=== PATIENT | female | born 1940 | race Caucasian/White ===

== ENCOUNTER → 2024-05-24 11:53 | Outpatient (REF) | payer OTHER, SELFPAY | LOC: RAD 11:53 | PROVIDERS: ATTENDING PHYSICIAN Physician Assistant; FAMILY PHYSICIAN Family Medicine | DX: M54.50 Low back pain, unspecified (principal); W19.XXXA Unspecified fall, initial encounter | CPT/HCPCS: 72110; 72170 ==

== ENCOUNTER 2024-06-04 10:05 | Emergency (ER) | payer OTHER, SELFPAY ==
[2024-06-04 10:09] VITALS: BP 181/93
--- NOTE | 2024-06-04 10:55 | ED.GENMED ---
History of Present Illness
General
Chief Complaint: Abdominal Symptoms
Time Seen by Provider: 06/04/24 10:32
History of Present Illness
History of Present Illness:
83-year-old female with history of hypertension presents to the emergency department for evaluation of persistent nausea for the past few days. Has been unable to eat for the past 2 days due to symptoms. Denies any vomiting or abdominal pain. No
fever, chills, sweats, dizziness, vision changes, chest pain, or shortness of breath. Does note that she got a flu shot 1 week ago.
Review of Systems
Review of Systems
Allergies reviewed?: Yes
All Other Systems: ROS reviewed and negative except as documented in HPI and ROS
Phy Exam
Physical Exam
Physical Exam:
GEN: Well appearing, NAD, WDWN
Eyes: PERRLA, EOMs intact, no scleral icterus
HENT: NCAT, oral mucosa moist
Lungs: CTAB, no wheezes, rales, rhonchi, normal chest wall excursion
Cardiac: RRR, no M/R/G, no peripheral edema. Radial pulses 2+ bilat
Abdomen: S, NT, ND, NABS, no masses or hepatosplenomegaly
Neuro: AO x 3, cranial nerves II through XII grossly intact, no focal deficits to BUE/BLE, normal sensation throughout
MSK: No gross deformity or ecchymosis. No edema. No digital clubbing
Skin: No rashes, petechiae. Normal color, no pallor or jaundice.
Psych: Calm, cooperative, proper hygiene
Course
Orders/Labs/Results
Orders:
Orders
06/04/24 10:54
Electrocardiogram (*1) Urgent
Reason for Study: Other
Other Reason for Exam: nausea
EKG- Treatment ONCE
0.9% Sodium Chloride 1000 ml [Nss] 1,000 ml IV BOLUS
06/04/24 11:03
Complete Blood Count/With Diff Urgent
Comprehensive Metabolic Panel Urgent
06/04/24 12:20
Ondansetron Injectable [Zofran] 4 mg IV NOW STA
Abnormal Lab Results
06/04/24
11:03
Absolute Neuts (auto) 7.1 H 10^3/uL
(1.4-6.5)
Absolute Monos (auto) 0.7 H 10^3/uL
(0.1-0.6)
Neutrophils % 75.6 H %
(42.2-75.2)
Lymphocytes % 16.4 L %
(20.5-51.1)
Glucose 108 H mg/dl
(70-99)
06/04/24 11:03
06/04/24 11:03
Vital Signs
Initial and Last Documented VS:
Initial Vital Signs
Temp Pulse Resp BP Pulse Ox
98.6 F 93 16 181/93 97
06/04/24 10:09 06/04/24 10:09 06/04/24 10:09 06/04/24 10:09 06/04/24 10:09
Last Documented Vital Signs
Temp Pulse Resp BP Pulse Ox
98.6 F 85 15 181/93 94
06/04/24 10:09 06/04/24 12:45 06/04/24 12:45 06/04/24 10:09 06/04/24 12:30
MDM/Problems Addressed
MDM/Problems Addressed:
His labs and EKG were normal. She has no abdominal pain or tenderness warranting imaging at this time. She was given 1 dose of Zofran with improvement in symptoms and was able to tolerate p.o. fluids without difficulty. May be a side effect of
her recent flu shot
*Critical Care Note
Total Time (30-74mins, 75-104mins- exclusive of procedures): Not Applicable
ED Attending Note
-
Portions of this chart may have been created with voice recognition software.� Occasional wrong word or��sound alike� substitutions may have occurred due to the inherent limitations of voice recognition software.
Discharge Plan
Departure
Patient Disposition: Home (Routine Discharge)
Date of Disposition: 06/04/24
Time of Disposition: 12:57
Patient with high blood pressure during this ER visit?: No
Discharge Problem:
Nausea
Prescriptions:
New
ondansetron 4 mg tablet,disintegrating
4 mg PO TIDPRN PRN (Reason: nausea/vomiting) Qty: 6 0RF
Referrals:
Janes Kay, DO [Family Provider] -
Activity Restrictions/Additional Instructions:
The cause of your nausea is not clear at this time, take the prescribed medication as needed for continued symptoms however the symptoms last more than 2 days follow-up with your primary care physician to discuss any further workup that may be needed
Interventions
Interventions:
*Risk Screen - Suicide Last Done: 06/04/24 10:53
*General Assessment Last Done: 06/04/24 10:53
*Neglect/Abuse Screening Last Done: 06/04/24 10:53
ED- Fall Risk Assessment Last Done: 06/04/24 10:53
*ED COVID-19 Vaccine History Last Done: 06/04/24 10:53
*Nursing Disposition Last Done: 06/04/24 13:12
ZW-Oxrhrc-Irioflnapq Assessment Last Done: 06/04/24 10:53
Discharge Date and Time
Discharge Date/Time: 06/04/24 13:12
Print Language: KINYARWANDA
[2024-06-04] MEDS: NSS 1000 IV (11:05)
[2024-06-04 11:15] LABS: % Basophils 0.2 % (0-2); % Eosinophils 0.4 % (0-6); % Immature Granulocytes 0.2 % (0-0.5); % Lymphocytes 16.4 % (20.5-51.1); % Monocytes 7.2 % (1.7-9.3); % Neutrophils 75.6 % (42.2-75.2); Absolute Lymphocytes 1.6 10^3/uL (1.2-3.4); Absolute Monocytes 0.7 10^3/uL (0.1-0.6); Absolute Neutrophils 7.1 10^3/uL (1.4-6.5); Hematocrit 41.7 % (37.0-47.0); Hemoglobin 14.4 g/dL (12.0-16.0); Mean Corp Hgb Conc. 34.5 g/dL (33.0-37.0); Mean Corpuscular Hgb 30.8 pg (27.0-31.0); Mean Corpuscular Volume 89.3 fL (81.0-99.0); Mean Platelet Volume 10.3 fL (7.4-10.4); Nucleated Red Blood Cells % 0 %; Platelet Count 318 10^3/uL (130-400); Red Blood Cell Count 4.67 10^6/uL (4.20-5.40); Red Cell Dist. Width 13.9 % (11.5-14.5); White Blood Cell Count 9.4 10^3/uL (4.8-10.8)
[2024-06-04 11:35] LABS: ALT (SGPT) 20 U/L (0-35); AST (SGOT) 28 U/L (14-36); Albumin 4.4 g/dl (3.5-5.0); Alkaline Phosphatase 124 U/L (38-126); Blood Urea Nitrogen 12 mg/dl (7-17); Calcium 10.2 mg/dl (8.4-10.2); Carbon Dioxide 26 mmol/L (22-30); Chloride 100 mmol/L (98-107); Glucose 108 mg/dl (70-99); Potassium 4.7 mmol/L (3.5-5.1); Sodium 141 mmol/L (135-145); Total Bilirubin 0.9 mg/dl (0.2-1.3); Total Protein 6.8 g/dl (6.3-8.2); eGFR > 60.00
[2024-06-04] MEDS: ZOFRAN 4 MG IV (12:24)
== END 2024-06-04 13:12 | disposition home or self-care (01) ==
LOC: EMR 10:05
PROVIDERS: Physician Assistant; EMERGENCY PHYSICIAN Emergency Medicine; FAMILY PHYSICIAN Family Medicine
DX: R11.0 Nausea (principal); I10 Essential (primary) hypertension
CPT/HCPCS: 99283; 96374; 96361; 80053; 85025; 93005

== ENCOUNTER 2024-06-06 13:09 | Emergency (ER) | payer OTHER, SELFPAY ==
[2024-06-06 13:12] VITALS: BP 192/86
[2024-06-06 13:21] VITALS: BP 166/70
[2024-06-06] MEDS: NSS 1000 IV (13:36)
[2024-06-06] MEDS: PEPCID 20 MG IV (13:39)
[2024-06-06] MEDS: ZOFRAN 4 MG IV (13:39)
[2024-06-06 13:52] LABS: % Basophils 0.5 % (0-2); % Eosinophils 0.6 % (0-6); % Immature Granulocytes 0.3 % (0-0.5); % Lymphocytes 23.3 % (20.5-51.1); % Monocytes 7.5 % (1.7-9.3); % Neutrophils 67.8 % (42.2-75.2); Absolute Basophils 0.1 10^3/uL (0-0.2); Absolute Eosinophils 0.1 10^3/uL (0-0.7); Absolute Lymphocytes 2.2 10^3/uL (1.2-3.4); Absolute Monocytes 0.7 10^3/uL (0.1-0.6); Absolute Neutrophils 6.5 10^3/uL (1.4-6.5); Hematocrit 41.4 % (37.0-47.0); Hemoglobin 13.9 g/dL (12.0-16.0); Mean Corp Hgb Conc. 33.6 g/dL (33.0-37.0); Mean Corpuscular Hgb 30.3 pg (27.0-31.0); Mean Corpuscular Volume 90.2 fL (81.0-99.0); Mean Platelet Volume 10.2 fL (7.4-10.4); Nucleated Red Blood Cells % 0 %; Platelet Count 313 10^3/uL (130-400); Red Blood Cell Count 4.59 10^6/uL (4.20-5.40); Red Cell Dist. Width 14.1 % (11.5-14.5); White Blood Cell Count 9.5 10^3/uL (4.8-10.8)
[2024-06-06 14:00] VITALS: BP 143/56
[2024-06-06 14:17] LABS: ALT (SGPT) 23 U/L (0-35); AST (SGOT) 39 U/L (14-36); Albumin 4.4 g/dl (3.5-5.0); Alkaline Phosphatase 105 U/L (38-126); Blood Urea Nitrogen 19 mg/dl (7-17); Calcium 9.9 mg/dl (8.4-10.2); Carbon Dioxide 25 mmol/L (22-30); Chloride 99 mmol/L (98-107); Glucose 99 mg/dl (70-99); Lipase 260 U/L (23-300); Potassium 4.7 mmol/L (3.5-5.1); Sodium 138 mmol/L (135-145); Total Bilirubin 0.9 mg/dl (0.2-1.3); Total Protein 6.7 g/dl (6.3-8.2); eGFR > 60.00
--- NOTE | 2024-06-06 14:18 | ED.GENMED ---
History of Present Illness
General
Chief Complaint: Abdominal Symptoms
Source: patient
Exam Limitations: none
Time Seen by Provider: 06/06/24 13:15
Nursing documentation reviewed up to this point in time: agreed with
History of Present Illness
History of Present Illness:
83-year-old female past medical history of hypertension, COPD presenting to the emergency department today with concerns of nausea over the past 4 days. Went to see the primary doctor and sent to the ER. Upon arrival patient is hypertensive but
this improved after specific treatment here. Denies any abdominal pain vomiting chest pain or shortness of breath. Labs were obtained showing a BUN to creatinine ratio indicating some degree of dehydration. She was given fluids.
Review of Systems
Review of Systems
Allergies reviewed?: Yes
All Other Systems: ROS reviewed and negative except as documented in HPI and ROS
Phy Exam
Physical Exam
Physical Exam:
GENERAL: Alert , in no apparent distress
EYE: pupils equal and reactive
NECK: Supple, no significant adenopathy.
ENT: o/p clr, mmm.
CARDIAC: Regular rate and rhythm .
LUNGS: Clear breath sounds bilaterally, no acute respiratory distress, no wheezes/rales/rhonchi
ABDOMEN: Soft, without focal tenderness, no r/g, no cvat
NEUROLOGICAL: Alert and oriented, no focal neuro deficits
SKIN: Warm and dry, skin intact.
MUSCULOSKELETAL: No edema, well perfused.
PSYCH: Normal and appropriate interaction.
Course
Orders/Labs/Results
Orders:
Orders
06/06/24 13:31
0.9% Sodium Chloride 1000 ml [Nss] 1,000 ml IV BOLUS
Famotidine [Pepcid] 20 mg IV NOW STA
Ondansetron Injectable [Zofran] 4 mg IV NOW STA
06/06/24 13:41
Complete Blood Count/With Diff Urgent
Comprehensive Metabolic Panel Urgent
Lipase Urgent
06/06/24 14:19
EKG [Electrocardiogram (*1)] Urgent
Reason for Study: Chest Pain
EKG- Treatment ONCE
06/06/24 14:28
Chest [CR Chest - 2 Views ] Urgent
Comment:
Reason For Exam: weak/tired cough
06/06/24 15:18
COVID-19 Antigen Urgent
Source: Nasal Swab
06/06/24 16:25
Urinalysis Reflex To Culture Urgent
Date Specimen was Collected: 06/06/24
Time Specimen was Collected: 16:07
Urine Microscopic Reflex Cult Urgent
Urine Culture Urgent
MASOOD Source: U
Specimen Description:
Date Specimen was Collected: 06/06/24
Time Specimen was Collected: 16:07
06/06/24 16:41
Case Management Consult ONCE
Case Management Consult: Discharge Planning
06/06/24 17:25
Cephalexin Monohydrate [Keflex] 500 mg PO NOW STA
Abnormal Lab Results
06/06/24 06/06/24
13:41 16:25
Absolute Monos (auto) 0.7 H 10^3/uL
(0.1-0.6)
BUN 19 H mg/dl
(7-17)
AST 39 H U/L
(14-36)
Urine Ketones 2+ A
(Negative)
Ur Occult Blood Reflex 1+ A
(Negative)
Urine Nitrite (Reflex) Positive A
(Negative)
Urine RBC 3-6 A /HPF
(0-2)
Urine Bacteria (Reflex) Many A
(Negative)
06/06/24 13:41
06/06/24 13:41
Vital Signs
Initial and Last Documented VS:
Initial Vital Signs
Temp Pulse Resp BP Pulse Ox
98.0 F 78 16 192/86 98
06/06/24 13:12 06/06/24 13:12 06/06/24 13:12 06/06/24 13:12 06/06/24 13:12
Last Documented Vital Signs
Temp Pulse Resp BP Pulse Ox
98.0 F 78 16 143/56 94
06/06/24 13:12 06/06/24 13:12 06/06/24 13:12 06/06/24 14:00 06/06/24 16:30
MDM/Problems Addressed
MDM/Problems Addressed:
83-year-old female presenting to the emergency department today with concerns of ongoing nausea decreased appetite over the past 4 days denies additional symptoms no abdominal pain no diarrhea no chest pain or shortness of breath.
1400: We received a call in from patient's outpatient doctor that had concerns of postnasal drip and potential urinary symptoms that she did not initially mention. This was further discussed with patient who then further clarified that yes she has
had some of the symptoms. Additional testing urinalysis was ordered. Also chest x-ray and COVID test. Patient's postnasal drip could be contributing to patient's nausea.
COVID test is negative urinalysis with positive nitrites many bacteria there is a possibility of UTI patient started on Keflex. Additionally patient's pulse ox with ambulation dropped to 87. She generally felt okay and claims that this was not
anything different from her baseline. It was recommended that we set up oxygen. It was recommended that we admit her to the hospital to set up oxygen before she goes home concerning a pulse into the 80s. She claimed that she would not be willing
to stay she understands the risk and will set this up as an outpatient. Case management was consulted she was advised to reach out help set up oxygen at home and given strict return precautions for any progressive respiratory symptoms.
*Critical Care Note
Total Time (30-74mins, 75-104mins- exclusive of procedures): Not Applicable
ED Attending Note
-
Portions of this chart may have been created with voice recognition software.� Occasional wrong word or��sound alike� substitutions may have occurred due to the inherent limitations of voice recognition software.
Discharge Plan
Departure
Patient Disposition: Home (Routine Discharge)
Date of Disposition: 06/06/24
Time of Disposition: 17:26
Patient with high blood pressure during this ER visit?: No
Condition: Good
Covid-19: Not Applicable
Discharge Problem:
Acute UTI, Nausea, Hypoxemia
Instructions: Urinary Tract Infection, Adult ED, Oxygen therapy at home
Prescriptions:
New
cephalexin 500 mg tablet
500 mg PO TID 7 Days Qty: 21 0RF
No Action
ondansetron 4 mg tablet,disintegrating
4 mg PO TIDPRN PRN (Reason: nausea/vomiting) Qty: 6 0RF
Referrals:
Janes Kay, DO [Family Provider] -
Activity Restrictions/Additional Instructions:
You came to the emergency department today with concerns of nausea that is ongoing. Additionally you are found to have a low pulse ox. You may have a UTI please take the Keflex 3 times daily for the next 5 days. You can also take your Zofran to
help with nausea. You will need to get oxygen set up due to your low pulse ox. If you have any concerning features of shortness of breath immediate return to the ER. Please follow closely with your primary doctor. Return to the emergency
department for any worsening, new or concerning symptoms.
Interventions
Interventions:
*Risk Screen - Suicide Last Done: 06/06/24 16:44
*General Assessment Last Done: 06/06/24 16:44
*Neglect/Abuse Screening Last Done: 06/06/24 16:44
*ED COVID-19 Vaccine History Last Done: 06/06/24 16:44
PF-Drqjam-Vwmgreupuo Assessment Last Done: 06/06/24 16:42
Discharge Date and Time
Print Language: KOSOVAN
[2024-06-06 15:41] LABS: COVID-19 Antigen Negative (Negative)
[2024-06-06 16:58] LABS: Urine Albumin Negative (Neg - Trace); Urine Bilirubin Negative (Negative); Urine Character Clear (Clear); Urine Color Yellow; Urine Glucose Negative (Negative); Urine Ketone 2+ (Negative); Urine Leukocyte Negative (Negative); Urine Nitrite Positive (Negative); Urine Occult Blood 1+ (Negative); Urine Specific Gravity 1.015 (<1.030); Urine Urobilinogen Negative (Neg - 1+)
[2024-06-06 17:21] LABS: Urine Bacteria Many (Negative)
[2024-06-06 17:31] VITALS: BP 176/92
[2024-06-06] MEDS: KEFLEX 500 MG PO (17:31)
== END 2024-06-06 17:38 | disposition home or self-care (01) ==
LOC: EMR 13:09
PROVIDERS: Physician Assistant; EMERGENCY PHYSICIAN Student in an Organized Health Care Education/Training Program; FAMILY PHYSICIAN Family Medicine
DX: N39.0 Urinary tract infection, site not specified (principal); R09.02 Hypoxemia; R11.0 Nausea; R09.82 Postnasal drip; Z11.52 Encounter for screening for COVID-19; E86.0 Dehydration; I10 Essential (primary) hypertension; J44.9 Chronic obstructive pulmonary disease, unspecified; M19.90 Unspecified osteoarthritis, unspecified site; Z87.891 Personal history of nicotine dependence
CPT/HCPCS: 99284; 96374; 96375; 96361; 71046; 80053; 81003; 81015; 83690; 85025; 87077; 87086; 87186; 87811; 93005

== ENCOUNTER 2024-06-10 10:36 | Emergency (ER) | payer OTHER, SELFPAY ==
[2024-06-10 10:40] VITALS: BP 144/82
[2024-06-10 11:51] VITALS: BMI 26.1
[2024-06-10 11:52] VITALS: BP 133/59
[2024-06-10 12:00] LABS: Hematocrit 41.4 % (37.0-47.0); Hemoglobin 14.1 g/dL (12.0-16.0); Mean Corp Hgb Conc. 34.1 g/dL (33.0-37.0); Mean Corpuscular Hgb 31.5 pg (27.0-31.0); Mean Corpuscular Volume 92.6 fL (81.0-99.0); Mean Platelet Volume 10.3 fL (7.4-10.4); Platelet Count 264 10^3/uL (130-400); Red Blood Cell Count 4.47 10^6/uL (4.20-5.40); Red Cell Dist. Width 14.2 % (11.5-14.5)
[2024-06-10 12:12] LABS: Blood Urea Nitrogen 17 mg/dl (7-17); Calcium 9.7 mg/dl (8.4-10.2); Carbon Dioxide 27 mmol/L (22-30); Chloride 101 mmol/L (98-107); Estimated Creatinine Clearance 44 ml/min; Glucose 101 mg/dl (70-99); Magnesium 1.9 mg/dl (1.6-2.3); Potassium 4.2 mmol/L (3.5-5.1); Sodium 140 mmol/L (135-145); eGFR > 60.00
[2024-06-10] MEDS: ROCEPHIN 1000 MG IV (13:22)
[2024-06-10] MEDS: NSS 1000 IV (13:22)
--- NOTE | 2024-06-10 13:34 | CM ---
CM spoke with patient and . THey are agreeable to [facility]. Referral sent to [facility] gem expert.
[2024-06-10 14:16] LABS: Urine Albumin Trace (Neg - Trace); Urine Bilirubin Negative (Negative); Urine Character Clear (Clear); Urine Color Yellow; Urine Glucose Negative (Negative); Urine Ketone 2+ (Negative); Urine Leukocyte Negative (Negative); Urine Nitrite Negative (Negative); Urine Occult Blood Negative (Negative); Urine Specific Gravity 1.025 (<1.030); Urine Urobilinogen Negative (Neg - 1+)
--- NOTE | 2024-06-10 14:16 | ED.GENMED ---
History of Present Illness
General
Chief Complaint: Abdominal Symptoms
Source: patient and spouse
Exam Limitations: none
Time Seen by Provider: 06/10/24 11:37
Nursing documentation reviewed up to this point in time: agreed with
History of Present Illness
History of Present Illness:
Pt presents to ED secondary to 6 day history of continual nausea and lack of appetite. Pt was evaluated in ED 2 days ago and was diagnosed with UTI and started on keflex, without sig. improvement in symptoms. Denies fever/chills. Denies vomiting.
Denies abdominal/back pain. Denies difficulty with urination/dysuria. Denies recent change in medication/diet.
Review of Systems
Review of Systems
Allergies reviewed?: Yes
All Other Systems: ROS reviewed and negative except as documented in HPI and ROS
Constitutional: Reports no symptoms
Respiratory: Reports no symptoms
Cardiac: Reports no symptoms
ABD/GI: Reports nausea
: Reports no symptoms
Musculoskeletal: Reports no symptoms
Skin: Reports no symptoms
Neurological: Reports no symptoms
Phy Exam
Physical Exam
Physical Exam:
General : well nourished female, in no acute distress. afebrile.
Heent: nc/at. eomi
Lungs: cta
Heart: rrr
Abd: soft and nontender.
Neuro: aao x 3. no focal neurological defict.
Skin: warm to touch. no rash.
Psych: pleasant and cooperative.
Course
Orders/Labs/Results
Orders:
Orders
06/10/24 11:52
Basic Metabolic Panel Urgent
Complete Blood Count/No Diff Urgent
Magnesium Urgent
06/10/24 13:02
CefTRIAXone [Rocephin] 1,000 mg IV NOW STA
06/10/24 13:03
Case Management Consult ONCE
Case Management Consult: VN/Home Care
0.9% Sodium Chloride 1000 ml [Nss] 1,000 ml IV BOLUS
06/10/24 13:20
Urinalysis Reflex To Culture Urgent
Date Specimen was Collected: 06/10/24
Time Specimen was Collected: 13:15
Abnormal Lab Results
06/10/24 06/10/24
11:52 13:20
MCH 31.5 H pg
(27.0-31.0)
Glucose 101 H mg/dl
(70-99)
Urine Ketones 2+ A
(Negative)
06/10/24 11:52
06/10/24 11:52
Vital Signs
Initial and Last Documented VS:
Initial Vital Signs
Temp Pulse Resp BP Pulse Ox
98.2 F 84 20 144/82 95
06/10/24 10:40 06/10/24 10:40 06/10/24 10:40 06/10/24 10:40 06/10/24 10:40
Last Documented Vital Signs
Temp Pulse Resp BP Pulse Ox
98.2 F 69 18 129/62 91
06/10/24 10:40 06/10/24 14:31 06/10/24 14:31 06/10/24 14:31 06/10/24 14:31
MDM/Problems Addressed
MDM/Problems Addressed:
Urine culture result reviewed and discuss with patient/spouse. Discussed treatment options, admission for iv abx/ivx or discharge home with different abx. Patient/spouse requesting to be discharged home, with understanding that if her symptoms do
not improve 48-72hrs, must consider returning to hospital for re-evaluation.
Case management consulted for home nurse visitation next week.
*Critical Care Note
Total Time (30-74mins, 75-104mins- exclusive of procedures): Not Applicable
ED Attending Note
-
Portions of this chart may have been created with voice recognition software.� Occasional wrong word or��sound alike� substitutions may have occurred due to the inherent limitations of voice recognition software.
Discharge Plan
Departure
Patient Disposition: Home (Routine Discharge)
Date of Disposition: 06/10/24
Time of Disposition: 14:17
Patient with high blood pressure during this ER visit?: Yes
Discharge Problem:
Acute UTI
Instructions: Urinary Tract Infection, Adult ED
Prescriptions:
New
cefdinir 300 mg capsule
300 mg PO BID Qty: 12 0RF
No Action
ondansetron 4 mg tablet,disintegrating
4 mg PO TIDPRN PRN (Reason: nausea/vomiting) Qty: 6 0RF
cephalexin 500 mg tablet
500 mg PO TID 7 Days Qty: 21 0RF
Referrals:
Janes Kay, DO [Family Provider] -
Activity Restrictions/Additional Instructions:
As discussed, please follow-up with your primary care physician for reevaluation next week. Please consider returning to ED, if your symptoms does not improve over the next 48 to 72 hours. Your prescription has been sent electronically to [facility]
pharmacy in [place].
Interventions
Interventions:
*Risk Screen - Suicide Last Done: 06/10/24 10:40
*General Assessment Last Done: 06/10/24 10:40
*Neglect/Abuse Screening Last Done: 06/10/24 10:40
ED- Fall Risk Assessment Last Done: 06/10/24 11:58
*Nursing Disposition Last Done: 06/10/24 14:32
OQ-Lwfuxw-Kjwhdabwfg Assessment Last Done: 06/10/24 11:58
Discharge Date and Time
Discharge Date/Time: 06/10/24 14:40
Print Language: POLISH
[2024-06-10 14:31] VITALS: BP 129/62
--- NOTE | 2024-06-10 15:19 | VNURNOTE ---
Chart reviewed. Called pt to review [facility] services. No answer, left a message. Referral placed in [facility].
== END 2024-06-10 14:40 | disposition home or self-care (01) ==
LOC: EMR 10:36
PROVIDERS: EMERGENCY PHYSICIAN Emergency Medicine; FAMILY PHYSICIAN Family Medicine
DX: N39.0 Urinary tract infection, site not specified (principal); R11.0 Nausea; R63.0 Anorexia; R03.0 Elevated blood-pressure reading, without diagnosis of hypertension
CPT/HCPCS: 99284; 96374; 96361; 80048; 81003; 83735; 85027

== ENCOUNTER 2024-07-09 00:54 | Emergency (ER) | payer OTHER, SELFPAY ==
[2024-07-09 00:58] VITALS: BP 182/86
[2024-07-09 01:38] VITALS: BMI 24.2
--- NOTE | 2024-07-09 01:51 | ED.GENMED ---
History of Present Illness
General
Chief Complaint: Abdominal Symptoms
Source: patient, records and spouse
Exam Limitations: none
Time Seen by Provider: 07/09/24 01:36
Nursing documentation reviewed up to this point in time: agreed with
History of Present Illness
History of Present Illness:
83-year-old female with a past medical history of hypertension, COPD who presents to the emergency room accompanied by her for evaluation of nausea. Patient reports that this has been an ongoing issue for over a month now. She reports
consistent feeling of nausea and poor appetite. She says that if she tries to eat anything more than just simple bland foods nausea becomes much more intense. She does not have any vomiting. She has not had any abdominal pain she says. She has
not had any diarrhea or constipation. She was initially seen for this in early May and it was thought to be related to UTI; she returned a few days later when symptoms were not improving and antibiotic was switched. She completed full course
of the second antibiotic (cefdinir). She says that she did have urinary symptoms prior to initial onset of symptoms and these resolved with antibiotics but nausea never really resolved although it did not improve for about a week after antibiotic
treatment and never completely went away and has once again worsened since. She denies any urinary symptoms at present. She denies any fevers or chills. She denies any headaches or neck pain. She denies similar symptoms in the past. When asked
why she decided to come to the emergency room tonight she says that the nausea was more intense tonight and urged her to come be evaluated. She does note that over the past few days she has noticed some postnasal drip and when she saw her
primary, PCP thought perhaps this was contributing to her nausea however she notes the postnasal drip only started a few days ago and nausea has been ongoing for over a month; she was prescribed 'nasal spray' but has only been on this for 24 hours.
Review of Systems
Review of Systems
All Other Systems: ROS reviewed and negative except as documented in HPI and ROS
Constitutional: Denies fever or chills
EENT: Reports runny nose
Respiratory: Denies cough or trouble breathing
Cardiac: Denies chest pain or palpitations
ABD/GI: Reports nausea and anorexia; Denies abdominal pain, vomiting, diarrhea or constipated
: Denies dysuria, frequency, flank pain, incontinence or bleeding
Musculoskeletal: Denies neck pain or back pain
Neurological: Denies dizzy, headache, weakness or numbness
Phy Exam
Physical Exam
Physical Exam:
General: Awake, alert, oriented x3; no acute distress
Head: Normocephalic, atraumatic
Eyes: Conjunctiva normal, sclera anicteric, pupils equal round and reactive to light bilaterally, extraocular movements intact
Throat: Airway intact, handling secretions
Neck: Trachea midline, supple without meningismus
Lungs: Clear to auscultation bilaterally, no wheezing, rales, rhonchi
Heart: Regular rate and rhythm, no murmurs, gallops, or rubs
Abd: Soft, non distended, nontender with no palpable masses
Neuro: Cranial nerves grossly intact, speech fluid, no motor or sensory deficits noted
Skin: no rash
Extremities: No edema in extremities, equal pulses in all extremities
Scores
Heart Failure Risk
Heart Failure Risk Score: Not Applicable
Heart Score for Chest Pain Patients
STEMI patient?: Not applicable
Withdrawal Assessment of Alcohol
Withdrawal Assessment Completed?: Not applicable
Course
Orders/Labs/Results
Orders:
Orders
07/09/24 01:46
Electrocardiogram (*1) Urgent
Reason for Study: Abdominal Pain
CT Abd/pelvis W Iv Cont Urgent
Comment:
Reason For Exam: nausea and anorexia
EKG- Treatment ONCE
07/09/24 01:47
Ondansetron Injectable [Zofran] 4 mg IV NOW STA
07/09/24 01:57
Complete Blood Count/With Diff Urgent
Comprehensive Metabolic Panel Urgent
Lipase Urgent
TSH Reflex To Free T4 Urgent
Troponin I Urgent
07/09/24 01:58
Urinalysis Reflex To Culture Urgent
Date Specimen was Collected: 07/09/24
Time Specimen was Collected: :57
Urine Microscopic Reflex Cult Urgent
Urine Culture Urgent
MASOOD Source: U
Specimen Description:
Date Specimen was Collected: 07/09/24
Time Specimen was Collected: :57
Abnormal Lab Results
07/09/24 07/09/24
01:57 01:58
RDW 14.6 H %
(11.5-14.5)
Absolute Monos (auto) 0.9 H 10^3/uL
(0.1-0.6)
Glucose 109 H mg/dl
(70-99)
Leukocyte Esterase Rfl 2+ A
(Negative)
07/09/24 01:57
07/09/24 01:57
Vital Signs
Initial and Last Documented VS:
Initial Vital Signs
Temp Pulse Resp BP Pulse Ox
36.8 C 87 20 182/86 94
07/09/24 00:58 07/09/24 00:58 07/09/24 00:58 07/09/24 00:58 07/09/24 00:58
Last Documented Vital Signs
Temp Pulse Resp BP Pulse Ox
36.8 C 84 20 152/77 91
07/09/24 00:58 07/09/24 04:00 07/09/24 04:00 07/09/24 04:00 07/09/24 03:15
MDM/Problems Addressed
Differential Diagnosis Includes:
GERD, gastritis, PUD, cholelithiasis, pancreatitis, malignancy
MDM/Problems Addressed:
83-year-old female presents to the emergency room for evaluation of persistent nausea and anorexia for the past month. Initially was associated with some urinary symptoms and she was treated for UTI but while urinary symptoms resolved her nausea
did not. She fortunately has not had any vomiting and denies any abdominal pain or any other complaints. Vitals and exam as above. Plan to check labs including a CBC and a CMP, lipase. Check thyroid studies. Check EKG and troponin. Check
urinalysis. Check CT abdomen pelvis. Treat with Zofran. Reassess after the above.
Labs reviewed: CBC and CMP unremarkable�notably normal LFTs. Lipase normal. EKG and troponin unremarkable. Thyroid studies normal. Urinalysis no signs of infection. CT abdomen pelvis shows no acute emergent pathology but does show
cholelithiasis but no signs of cholecystitis, there are some poorly characterized hepatic lesions. I discussed results with patient�somewhat lower suspicion that her chronic nausea is related to cholelithiasis as it does not seem to be triggered by
meals but rather I constant sensation. This could be gastritis, PUD. She did improve with Zofran significantly. I do think she should have GI referral for further evaluation of her symptoms. Will start on PPI for now and prescribe Zofran as
needed. Patient and feel very comfortable to this plan. We spoke about return precautions and all questions were answered.
Acute Exacerbation and/or Progression of Chronic Illness:
Acutely hypertensive
Acute Exacerbation and/or Progression of Chronic Illness: HTN
*Radiology
Radiology exam reviewed: radiology read reviewed
*Pulse Oximetry
Patient hypoxic: no
*EKG
Interpreted by ED Provider?: Yes
Heart Rate: 68
Rate: normal
Rhythm: sinus
Vaughn: normal axis
Interval: normal interval
QRS Pattern: normal QRS
Ischemia: no ischemia
*Critical Care Note
Total Time (30-74mins, 75-104mins- exclusive of procedures): Not Applicable
Data Reviewed
Source: patient, records and spouse
ED Attending Note
-
Portions of this chart may have been created with voice recognition software.� Occasional wrong word or��sound alike� substitutions may have occurred due to the inherent limitations of voice recognition software.
Discharge Plan
Departure
Patient Disposition: Home (Routine Discharge)
Date of Disposition: 07/09/24
Time of Disposition: 04:10
Patient with high blood pressure during this ER visit?: Yes
Discharge Problem:
Nausea, Hypertension
Instructions: Nausea and Vomiting, Adult (DC), BLOOD PRESSURE
Prescriptions:
New
ondansetron 4 mg tablet,disintegrating
4 mg PO TIDPRN PRN (Reason: nausea/vomiting) Qty: 20 0RF
pantoprazole 40 mg tablet,delayed release (DR/EC)
40 mg PO DAILY Qty: 30 0RF
Referrals:
Janes Kay DO [Family Provider] -
Nelson Mcdonald MD [Active] - Call in 1-3 days for appt (GI doctor)
Activity Restrictions/Additional Instructions:
Thank you for visiting the Emergency Department at [facility].
1. Please schedule a follow up appointment as directed. Call first thing tomorrow morning to make an appointment.
2. If indicated, please take your medications as instructed and indicated on discharge paperwork.
3. If any of your symptoms do not improve, or persist, or become more severe within 6-12 hours, please return to the emergency department for further care.
4. Please return to the emergency department if you develop a headache, neck pain/stiffness, fever greater than 100.4F, chest pain, shortness of breath, persistent nausea, vomiting, slurred speech, difficulty walking, numbness/tingling, weakness,
signs of infection or any other symptoms that are worrisome to you.
Please call [phone] if you have any questions.
Interventions
Interventions:
*Risk Screen - Suicide Last Done: 07/09/24 00:58
*General Assessment Last Done: 07/09/24 00:58
*Neglect/Abuse Screening Last Done: 07/09/24 00:58
ED- Fall Risk Assessment Last Done: 07/09/24 00:58
*ED COVID-19 Vaccine History Last Done: 07/09/24 00:58
JF-Nwrkhj-Ysxxpfguwb Assessment Last Done: 07/09/24 01:40
Discharge Date and Time
Print Language: BRITISH
[2024-07-09] MEDS: ZOFRAN 4 MG IV (01:56)
[2024-07-09 02:00] VITALS: BP 155/65
[2024-07-09 02:08] LABS: % Basophils 0.4 % (0-2); % Eosinophils 1.8 % (0-6); % Immature Granulocytes 0.3 % (0-0.5); % Lymphocytes 26.6 % (20.5-51.1); % Monocytes 9.2 % (1.7-9.3); % Neutrophils 61.7 % (42.2-75.2); Absolute Eosinophils 0.2 10^3/uL (0-0.7); Absolute Lymphocytes 2.6 10^3/uL (1.2-3.4); Absolute Monocytes 0.9 10^3/uL (0.1-0.6); Hematocrit 41.8 % (37.0-47.0); Hemoglobin 14.2 g/dL (12.0-16.0); Mean Corpuscular Hgb 30.8 pg (27.0-31.0); Mean Corpuscular Volume 90.7 fL (81.0-99.0); Mean Platelet Volume 10.1 fL (7.4-10.4); Nucleated Red Blood Cells % 0 %; Platelet Count 261 10^3/uL (130-400); Red Blood Cell Count 4.61 10^6/uL (4.20-5.40); Red Cell Dist. Width 14.6 % (11.5-14.5); White Blood Cell Count 9.7 10^3/uL (4.8-10.8)
[2024-07-09 02:09] LABS: Urine Albumin Trace (Neg - Trace); Urine Bilirubin Negative (Negative); Urine Character Clear (Clear); Urine Color Yellow; Urine Glucose Negative (Negative); Urine Ketone Negative (Negative); Urine Leukocyte 2+ (Negative); Urine Nitrite Negative (Negative); Urine Occult Blood Negative (Negative); Urine Urobilinogen Negative (Neg - 1+); Urine pH 6.5 (5.0-9.0)
[2024-07-09 02:19] LABS: Urine Squamous Cell >30 /LPF (Few)
[2024-07-09 02:20] LABS: Urine Red Blood Cell None Seen /HPF (0-2)
[2024-07-09 02:25] LABS: ALT (SGPT) 23 U/L (0-35); AST (SGOT) 31 U/L (14-36); Albumin 4.7 g/dl (3.5-5.0); Alkaline Phosphatase 68 U/L (38-126); Blood Urea Nitrogen 10 mg/dl (7-17); Calcium 10.2 mg/dl (8.4-10.2); Carbon Dioxide 27 mmol/L (22-30); Chloride 100 mmol/L (98-107); Estimated Creatinine Clearance 50 ml/min; Glucose 109 mg/dl (70-99); Lipase 88 U/L (23-300); Potassium 4.3 mmol/L (3.5-5.1); Sodium 140 mmol/L (135-145); Total Protein 6.9 g/dl (6.3-8.2); eGFR > 60.00
[2024-07-09 02:33] LABS: Troponin I < 0.012 ng/ml
[2024-07-09 02:56] LABS: TSH Reflex To Free T4 1.41 uIU/ml (0.47-4.68)
[2024-07-09 04:00] VITALS: BP 152/77
[2024-07-09] MEDS: PROTONIX 40 MG PO (04:16)
== END 2024-07-09 04:20 | disposition home or self-care (01) ==
LOC: EMR 00:54
PROVIDERS: EMERGENCY PHYSICIAN Emergency Medicine; FAMILY PHYSICIAN Family Medicine
DX: R11.0 Nausea (principal); I10 Essential (primary) hypertension; R63.0 Anorexia; K80.20 Calculus of gallbladder without cholecystitis without obstruction; J44.9 Chronic obstructive pulmonary disease, unspecified; M19.90 Unspecified osteoarthritis, unspecified site; Z87.440 Personal history of urinary (tract) infections; Z88.1 Allergy status to other antibiotic agents; Z88.2 Allergy status to sulfonamides; Z87.891 Personal history of nicotine dependence
CPT/HCPCS: 99284; 96374; 74177; 80053; 81003; 81015; 83690; 84443; 84484; 85025; 87086; 93005; Q9967